=== PATIENT | male | born 1995 | race Caucasian/White ===

== ENCOUNTER 2023-02-04 07:51 | Outpatient (CLI) | payer OTHER ==
[2023-02-04] MEDS ORDERED: Gadobenate 529 MG/1 ML (20ML SDV) ONE (08:30)
[2023-02-04] MEDS ORDERED: Lidocaine 1% PF 5 ML VIAL ONE (08:30)
[2023-02-04] MEDS ORDERED: EPINEPHrine 1 MG/ML AMP ONE (08:30)
[2023-02-04] MEDS ORDERED: Iopamidol 300 61% 100 ML VIAL FS ONE (08:30)
[2023-02-04] MEDS ORDERED: Magnevist 469MG/ML 20 ML VIAL ONE (12:01)
== END 2023-02-04 07:52 | disposition home or self-care (01) ==
LOC: RAD 07:51
PROVIDERS: ATTEND Orthopaedic Surgery
DX: S43.431A Superior glenoid labrum lesion of right shoulder, initial encounter (principal)
CPT/HCPCS: 23350; A9577; A9579; J0171; J7050; Q9967